=== PATIENT | male | born 1955 | race Caucasian/White ===

== ENCOUNTER 2017-06-16 09:20 | Emergency (ER) | payer BC ==
[2017-06-16 09:26] VITALS: BMI 31.4
[2017-06-16 09:28] VITALS: TEMP 98.1; O2SAT 96
[2017-06-16 11:04] LABS: BASO % 0.5 % (0.0-2.0); EOS % 0.4 % (0.0-4.0); HEMOGLOBIN 14.5 g/dL (12.0-18.0); LYMPH # 1.9 K/uL (1.0-4.3); MEAN CELL VOLUME 86.6 fl (80.0-94.0); MEAN CORPUSCULAR HEMOGLOBIN 29.3 pg (27.0-31.0); MEAN CORPUSCULAR HGB CONC 33.9 g/dL (33.0-37.0); MEAN PLATELET VOLUME 8.4 fl (7.2-11.7); MONO # 0.2 K/uL (0.0-0.8); MONO % 2.6 % (0.0-10.0); NEUT # 6.7 K/uL (1.8-7.0); NEUT % 75.5 % (50.0-75.0); NRBC % 0.1 % (0.0-0.0); RBC 4.93 Mil/uL (4.40-5.90); RED CELL DISTRIBUTION WIDTH 13.4 % (11.5-14.5); WHITE BLOOD COUNT 8.9 K/uL (4.8-10.8)
[2017-06-16 11:17] LABS: ALB/GLOB RATIO 1.2 (1.0-2.1); ALBUMIN 4.2 g/dL (3.5-5.0); ALT/SGPT 38 U/L (21-72); AST/SGOT 20 U/L (17-59); BLOOD UREA NITROGEN 12 mg/dl (9-20); CALCIUM 9.3 mg/dL (8.4-10.2); GFR AFRICAN-AMERICAN > 60; GFR NON-AFRICAN AMERICAN > 60
--- NOTE | 2017-06-16 11:34 | CT ---
PROCEDURE: CT HEAD WITHOUT CONTRAST. HISTORY: SHAY COMPARISON: None available. TECHNIQUE: Axial computed tomography images were obtained through the head/brain without intravenous contrast. Radiation dose: Total exam DLP = 932.4 mGy-cm. This CT exam was performed using one or more of the following dose reduction techniques: Automated exposure control, adjustment of the mA and/or kV according to patient size, and/or use of iterative reconstruction technique. FINDINGS: HEMORRHAGE: No intracranial hemorrhage. BRAIN: No mass effect or edema. No atrophy or chronic microvascular ischemic changes. VENTRICLES: Unremarkable. No hydrocephalus. CALVARIUM: Unremarkable. PARANASAL SINUSES: Unremarkable as visualized. No significant inflammatory changes. MASTOID AIR CELLS: Unremarkable as visualized. No inflammatory changes. OTHER FINDINGS: None. IMPRESSION: No acute intracranial pathology.
--- NOTE | 2017-06-16 11:37 | ED PDOC ---
HPI: Hypertension/Hypotension Time Seen by Provider: 06/16/17 09:46 Chief Complaint (Nursing): High Blood Pressure Chief Complaint (Provider): Elevated BP History Per: Patient History/Exam Limitations: no limitations Additional Complaint(s): Pt states he took his BP yesterday and found to be 170/110, took it today again and still elevated. States compliance with ? HTN med. Pt c/o generalized SHAY that started yesterday. Denies visual changes, neck stiffnes, paresthesias, weakness. Denies CP, SOB, nausea, vomiting. Past Medical History Reviewed: Nursing Documentation, Vital Signs Vital Signs: Last Vital Signs Temp 98.1 F 06/16/17 09:26 Pulse 61 06/16/17 11:27 Resp 18 06/16/17 10:47 BP 158/93 H 06/16/17 11:27 Pulse Ox 96 06/16/17 09:26 - Medical History PMH: HTN - Surgical History Surgical History: No Surg Hx - Family History Family History: States: Unknown Family Hx - Social History Current smoker - smoking cessation education provided: No Alcohol: None - Home Medications Home Medications: Ambulatory Orders Medication Instructions Recorded amLODIPine [Norvasc] 5 mg PO DAILY #14 tab 06/16/17 - Allergies Allergies/Adverse Reactions: Allergies Allergy/AdvReac Type Severity Reaction Status Date / Time No Known Allergies Allergy Verified 06/16/17 09:43 Review of Systems Constitutional: Negative for: Fever, Chills Eyes: Negative for: Vision Change Cardiovascular: Negative for: Chest Pain, Palpitations Respiratory: Negative for: Cough, Shortness of Breath Gastrointestinal: Negative for: Nausea, Vomiting, Abdominal Pain, Diarrhea Genitourinary Male: Negative for: Dysuria, Hematuria Musculoskeletal: Negative for: Back Pain Skin: Negative for: Rash, Lesions Neurological: Positive for: Headache. Negative for: Weakness, Numbness, Incoordination, Change in Speech, Confusion, Seizures, Altered Mental Status, Dizziness Physical Exam - Reviewed Nursing Documentation Reviewed: Yes Vital Signs Reviewed: Yes - Physical Exam Appears: Positive for: Well, No Acute Distress Head Exam: Positive for: ATRAUMATIC, NORMAL INSPECTION Skin: Positive for: Normal Color, Warm, Dry Eye Exam: Positive for: Normal appearance, EOMI, PERRL Neck: Positive for: Normal, Painless ROM, Supple Cardiovascular/Chest: Positive for: Regular Rate, Rhythm Respiratory: Positive for: Normal Breath Sounds. 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 Negative for: Motor/Sensory Deficits, Cerebellar Tests, Aphasia, Facial Droop - Laboratory Results Result Diagrams: 06/16/17 10:40 06/16/17 10:40 - ECG O2 Sat by Pulse Oximetry: 96 Medical Decision Making Medical Decision Makin yo male with elevated BP and headache. - labs - EKG - CT head - [facility] Accession No. : [id number] Patient Name / ID : GANESH LEBRON / [id number] Exam Date : 06/16/2017 11:02:51 ( Approved ) Study Comment : Sex / Age : M / 61Y Creator : Dev Acevedo MD Dictator : Dev Acevedo MD Turret Lathe Tender : Plum Packer : Dev Acevedo MD Approver2 : Report Date : 06/16/2017 11:32:59 My Comment : PROCEDURE: CT HEAD WITHOUT CONTRAST. HISTORY: SHAY COMPARISON: None available. TECHNIQUE: Axial computed tomography images were obtained through the head/brain without intravenous contrast. Radiation dose: Total exam DLP = 932.4 mGy-cm. This CT exam was performed using one or more of the following dose reduction techniques: Automated exposure control, adjustment of the mA and/or kV according to patient size, and/or use of iterative reconstruction technique. FINDINGS: HEMORRHAGE: No intracranial hemorrhage. BRAIN: No mass effect or edema. No atrophy or chronic microvascular ischemic changes. VENTRICLES: Unremarkable. No hydrocephalus. CALVARIUM: Unremarkable. PARANASAL SINUSES: Unremarkable as visualized. No significant inflammatory changes. MASTOID AIR CELLS: Unremarkable as visualized. No inflammatory changes. OTHER FINDINGS: None. IMPRESSION: No acute intracranial pathology. Disposition - Clinical Impression Clinical Impression: Hypertension, Headache - Disposition Referrals: [facility] [place] [Outside] [facility] [place] [Outside] Disposition: Routine/Home Disposition Time: 12:47 Condition: STABLE Prescriptions: amLODIPine [Norvasc] 5 mg PO DAILY #14 tab Instructions: High Blood Pressure in Adults, Headache, Adult (DC) Forms: [email or web address] (Ivorian)
[2017-06-16 11:41] LABS: SQUAMOUS EPITHIAL < 1 /hpf (0-5); URINE BILIRUBIN NEGATIVE (NEGATIVE); URINE BLOOD NEGATIVE (NEGATIVE); URINE CLARITY CLEAR (Clear); URINE COLOR STRAW (YELLOW); URINE GLUCOSE (UA) NEG (Normal); URINE LEUKOCYTE ESTERASE NEG Leu/uL (Negative); URINE PROTEIN NEGATIVE (NEGATIVE); URINE UROBILINOGEN 0.2-1.0 mg/dL (0.2-1.0)
[2017-06-16 12:20] VITALS: BP 147/92; PULSE 57; RESP 16
--- NOTE | 2017-06-17 10:45 | CARD ---
APPROVED REPORT EKG Measurement Heart [id number] MI [id number] <Conclusion> Normal sinus rhythm Left axis deviation Pulmonary disease pattern Septal infarct, age undetermined Abnormal ECG
== END 2017-06-16 13:20 | disposition home or self-care (01) ==
LOC: H.ER 09:20
DX: I10 Essential (primary) hypertension (principal); R51 Headache

== ENCOUNTER 2017-08-26 10:45 | Observation (INO) | payer BC ==
[2017-08-26 10:53] VITALS: BMI 30.4
[2017-08-26] MEDS ORDERED: Sodium Chloride 0.9% 1,000 ML IV STA (11:40)
[2017-08-26 12:27] LABS: SQUAMOUS EPITHIAL < 1 /hpf (0-5); URINE BACTERIA RARE (<OCC); URINE BILIRUBIN NEGATIVE (NEGATIVE); URINE BLOOD SMALL (NEGATIVE); URINE CLARITY SLIGHTY-CLOUDY (Clear); URINE COLOR STRAW (YELLOW); URINE GLUCOSE (UA) >=500 mg/dL (Normal); URINE LEUKOCYTE ESTERASE MOD Leu/uL (Negative); URINE PROTEIN NEGATIVE (NEGATIVE); URINE UROBILINOGEN 0.2-1.0 mg/dL (0.2-1.0)
[2017-08-26 12:28] LABS: BASO % 0.2 % (0.0-2.0); HEMOGLOBIN 15.1 g/dL (12.0-18.0); LYMPH # 1.8 K/uL (1.0-4.3); LYMPH % 10.2 % (20.0-40.0); MEAN CELL VOLUME 86.9 fl (80.0-94.0); MEAN CORPUSCULAR HEMOGLOBIN 29.6 pg (27.0-31.0); MEAN CORPUSCULAR HGB CONC 34.1 g/dL (33.0-37.0); MEAN PLATELET VOLUME 8.5 fl (7.2-11.7); MONO # 0.6 K/uL (0.0-0.8); MONO % 3.5 % (0.0-10.0); NEUT # 15.3 K/uL (1.8-7.0); NEUT % 86.1 % (50.0-75.0); RBC 5.1 Mil/uL (4.40-5.90); RED CELL DISTRIBUTION WIDTH 13.5 % (11.5-14.5); WHITE BLOOD COUNT 17.7 K/uL (4.8-10.8)
[2017-08-26 12:47] LABS: ALB/GLOB RATIO 1.1 (1.0-2.1); ALBUMIN 4.8 g/dL (3.5-5.0); ALT/SGPT 27 U/L (21-72); AST/SGOT 30 U/L (17-59); BLOOD UREA NITROGEN 22 mg/dl (9-20); CALCIUM 9.5 mg/dL (8.4-10.2); GFR AFRICAN-AMERICAN > 60; GFR NON-AFRICAN AMERICAN 51; LIPASE 65 U/L (23-300)
[2017-08-26] MEDS ORDERED: Iohexol 300 100 ML IJ ONE (13:30)
[2017-08-26] MEDS ORDERED: Sodium Chloride 0.9% 50 ML IV ONE (13:30)
--- NOTE | 2017-08-26 13:43 | ED PDOC ---
HPI: Abdomen Time Seen by Provider: 08/26/17 11:03 Chief Complaint (Nursing): Abdominal Pain Chief Complaint (Provider): abdominal pain History Per: Patient History/Exam Limitations: no limitations Onset/Duration Of Symptoms: Days (2), Gradual Severity: Moderate Location Of Pain/Discomfort: LLQ Quality Of Discomfort: Sharp Associated Symptoms: Loss Of Appetite, Back Pain. denies: Nausea, Vomiting, Diarrhea Exacerbating Factors: None Alleviating Factors: None Last Bowel Movement: Today Additional Complaint(s): 61yo male c/o LLQ abdominal pain x2-3 days associated with generalized weakness and fatigue. Denies melena, BRBPR, diarrhea, vomiting or cough. Notes chills but denies fever. Denies prior history of similar symptoms. Past Medical History Reviewed: Historical Data, Nursing Documentation, Vital Signs Vital Signs: Last Vital Signs Temp 98.4 F 08/26/17 10:53 Pulse 92 H 08/26/17 10:53 Resp 16 08/26/17 10:53 BP 174/98 H 08/26/17 10:53 Pulse Ox 98 08/26/17 10:53 - Medical History PMH: Diabetes, HTN - Family History Family History: States: Unknown Family Hx - Social History Current smoker - smoking cessation education provided: No Drugs: Denies - Home Medications Home Medications: Ambulatory Orders Medication Instructions Recorded amLODIPine [Norvasc] 5 mg PO DAILY #14 tab 06/16/17 - Allergies Allergies/Adverse Reactions: Allergies Allergy/AdvReac Type Severity Reaction Status Date / Time No Known Allergies Allergy Verified 06/16/17 09:43 Review of Systems Constitutional: Positive for: Chills, Weakness. Negative for: Fever ENT: Negative for: Throat Pain Cardiovascular: Negative for: Chest Pain, Palpitations Respiratory: Negative for: Cough, Shortness of Breath Gastrointestinal: Positive for: Abdominal Pain. Negative for: Nausea, Vomiting , Diarrhea Genitourinary Male: Negative for: Dysuria Musculoskeletal: Negative for: Neck Pain, Back Pain Skin: Negative for: Rash, Lesions, Jaundice Neurological: Negative for: Weakness, Numbness Psych: Negative for: Anxiety Physical Exam - Reviewed Nursing Documentation Reviewed: Yes Vital Signs Reviewed: Yes - Physical Exam Appears: Positive for: Well, Non-toxic, No Acute Distress Head Exam: Positive for: ATRAUMATIC, NORMAL INSPECTION, NORMOCEPHALIC Skin: Positive for: Normal Color, Warm, DRY Eye Exam: Positive for: EOMI, Normal appearance, PERRL ENT: Positive for: Normal ENT Inspection Neck: Positive for: Normal, Painless ROM Cardiovascular/Chest: Positive for: Regular Rate, Rhythm Respiratory: Positive for: CNT, Normal Breath Sounds Pulses-Radial (L): 3+/4+ Pulses-Radial (R): 3+/4+ Gastrointestinal/Abdominal: Positive for: Soft, Tenderness (mild LLQ tenderness) . Negative for: Guarding Back: Positive for: Normal Inspection Extremity: Positive for: Normal ROM Neurologic/Psych: Positive for: Alert, Oriented. Negative for: Motor/Sensory Deficits - Laboratory Results Result Diagrams: 08/26/17 12:19 08/26/17 12:19 - ECG O2 Sat by Pulse Oximetry: 98 Medical Decision Making Medical Decision Making: Workup for abd pain and generalized weakness r/o diverticulitits, pyelonephritis , colitis, obstruction, mass, or other. Labs reviewed revealing elevated WBC 17 w left shift Mild elev BUN w WBC and leuk est in UA Disposition - Disposition
--- NOTE | 2017-08-26 14:27 | CT ---
PROCEDURE: CT Abdomen and Pelvis with contrast HISTORY: LLQ pain weakness x2days COMPARISON: None. TECHNIQUE: Following the intravenous administration of iodinated contrast material, a CT examination of the abdomen and pelvis performed from the domes of the diaphragms to the symphysis pubis with reformatted datasets provided not only axial but also sagittal and coronal planes. Oral contrast was not administered as per referring physician request. Contrast dose: Omnipaque 300, 100 cc Radiation dose: Total exam DLP = 885.93 mGy-cm. This CT exam was performed using one or more of the following dose reduction techniques: Automated exposure control, adjustment of the mA and/or kV according to patient size, and/or use of iterative reconstruction technique. FINDINGS: LOWER THORAX: Mild cardiomegaly and bilateral basilar dependent atelectasis. LIVER: Unremarkable. No gross lesion or ductal dilatation. GALLBLADDER AND BILE DUCTS: Unremarkable. PANCREAS: Unremarkable. No gross lesion or ductal dilatation. SPLEEN: Unremarkable. ADRENALS: Unremarkable. No mass. KIDNEYS AND URETERS: There is a 7.0 x 6.3 x 8.5 mm calculus with irregular peripheral margins lodged at distal segment of the proximal left ureter (upper L3 endplate level) causing moderate left hydroureteronephrosis with prominent left perinephric reaction extending toward the left pericolic gutter. No fluid collection identified. The ureter distal to the calculus is normal in caliber with the urinary bladder decompressed but questionably thick-walled. No additional radiodense urolithiasis bilaterally. No right-sided obstructive uropathy although mildly prominent extrarenal pelvis is noted at the right kidney. VASCULATURE: Unremarkable. No aortic aneurysm. BOWEL: The stomach is collapsed. No obstruction. No gross mural thickening. Moderate fecal loading is seen throughout the colon. APPENDIX: Normal appendix. PERITONEUM: Shotty central mesenteric lymph nodes are identified associated with ground-glass opacity in the central fat suspicious for mesenteric adenitis. LYMPH NODES: No grossly enlarged lymphadenopathy. BLADDER: See kidneys in ureter section above peer REPRODUCTIVE: Mild prostate gland enlargement identified. BONES: No acute fracture. OTHER FINDINGS: None. IMPRESSION: 1. 7.0 x 6.3 x 8.5 mm irregular calculus obstructs the proximal right ureter causing moderate left-sided obstructive uropathy. No additional radiodense urolithiasis. No right-sided obstructive uropathy identified. Urinary bladder is partially decompressed with limited evaluation of the thick appearing wall but no pericystic reaction. 2. Potential mesenteric adenitis as discussed above. Remainder the examination is nonacute.
[2017-08-26 14:42] LABS: VENOUS BLOOD GAS BASE EXCESS -0.6 mmol/L (0.0-2.0); VENOUS BLOOD GAS PCO2 46 mmHg (40-60); VENOUS BLOOD GAS PO2 25 mm/Hg (30-55); VENOUS BLOOD PH 7.35 (7.32-7.43)
--- NOTE | 2017-08-26 16:09 | CP.PCM.HP ---
History of Present Illness - History of Present Illness History of Present Illness: CC: L flank pain HPI: 61 YO Male with HTN, Prediabetes, CVA x 3 (last one 2008) presents to [facility] ED with L flank pain. Pt states that the pain started yesterday, sharp in nature without radiation and has worsened overnight. Pt states that pain is accompanied by generalized weakness, and chills overnight. No hx of similar episodes in the past. Denies chest pain, dyspnea, nausea, vomiting, fever, dysuria, urinary frequency or hematuria. MD: MONSERRAT PMH: HTN, prediabetes, CVA x 3 SUrgHx: cerebral stent 2008 SH: social ETOH, denies currently smoking (1 yr smoking socially) and illicit drug use Allergies: NKDA Meds: Amlodipine 5mg, Cozaar 100mg, Metformin 500mg, Asa 81mg Code: Full code ED course: Vitals: BP 174/98, HR 92, T 98.4, RR 16, O2 98 RA Labs: 17.7>15.1/44.3<213 140/4.0, 101/26, 22/1.4 <137 Trops x 1 neg UA-- +RBC 7 and WBC 34, Mod Leukes Meds: toradol 15mg, Rocephin, 1L IVF Present on Admission - Present on Admission Any Indicators Present on Admission: No Review of Systems - Constitutional Constitutional: Chills, Weakness (generalized ). absent: Headache - Cardiovascular Cardiovascular: absent: Chest Pain, Dyspnea - Respiratory Respiratory: absent: Dyspnea - Gastrointestinal Gastrointestinal: Other (L flank pain ). absent: Change in Stool Character, Diarrhea - Genitourinary Genitourinary: absent: Difficulty Urinating, Dysuria, Hematuria, Pyuria Past Patient History - Infectious Disease Hx of Infectious Diseases: None - Past Social History Smoking Status: Former Smoker Alcohol: Social Drugs: Denies - CARDIAC Hx Hypertension: Yes - NEUROLOGICAL Other/Comment: 3 strokes 9 yrs ago - PSYCHIATRIC Hx Substance Use: No - SURGICAL HISTORY Hx Surgeries: Yes Other/Comment: stent placement to head and rt groin 9 yrs ago - ANESTHESIA Hx Anesthesia: Yes Hx Anesthesia Reactions: No Meds Allergies/Adverse Reactions: Allergies Allergy/AdvReac Type Severity Reaction Status Date / Time No Known Allergies Allergy Verified 06/16/17 09:43 Physical Exam - Constitutional Appears: No Acute Distress - Head Exam Head Exam: NORMAL INSPECTION - Eye Exam Eye Exam: EOMI, Normal appearance - ENT Exam ENT Exam: Mucous Membranes Moist - Respiratory Exam Respiratory Exam: Clear to Auscultation Bilateral, NORMAL BREATHING PATTERN. absent: Rhonchi, Wheezes - Cardiovascular Exam Cardiovascular Exam: REGULAR RHYTHM, +S1, +S2 - GI/Abdominal Exam GI & Abdominal Exam: Normal Bowel Sounds, Soft. absent: Distended, Guarding, Tenderness - Back Exam Back exam: NORMAL INSPECTION. absent: CVA tenderness (L), CVA tenderness (R) - Neurological Exam Neurological exam: Alert, Oriented x3 - Psychiatric Exam Psychiatric exam: Normal Affect, Normal Mood - Skin Skin Exam: Dry, Intact, Pallor Results - Vital Signs Recent Vital Signs: Last Vital Signs Temp 98.4 F 08/26/17 10:53 Pulse 92 H 08/26/17 10:53 Resp 16 08/26/17 10:53 BP 174/98 H 08/26/17 10:53 Pulse Ox 98 08/26/17 15:05 - Labs Result Diagrams: 08/26/17 12:19 08/26/17 12:19 Labs: Laboratory Results - last 24 hr 08/26/17 08/26/17 08/26/17 11:47 12:10 12:19 WBC 17.7 H D RBC 5.10 Hgb 15.1 Hct 44.3 MCV 86.9 MCH 29.6 MCHC 34.1 RDW 13.5 Plt Count 213 MPV 8.5 Neut % (Auto) 86.1 H Lymph % (Auto) 10.2 L [place] % (Auto) 3.5 Eos % (Auto) 0.0 Baso % (Auto) 0.2 Neut # (Auto) 15.3 H Lymph # (Auto) 1.8 [place] # (Auto) 0.6 Eos # (Auto) 0.0 Baso # (Auto) 0.0 pO2 VBG pH VBG pCO2 VBG HCO3 VBG Total CO2 VBG O2 Sat (Calc) VBG Base Excess VBG Potassium Glucose Lactate FiO2 Sodium Potassium Chloride Carbon Dioxide Anion Gap BUN Creatinine Est GFR ( Amer) Est GFR (Non-Af Amer) POC Glucose (mg/dL) 129 H Random Glucose Calcium Total Bilirubin AST ALT Alkaline Phosphatase Total Creatine Kinase Troponin I Total Protein Albumin Globulin Albumin/Globulin Ratio Lipase Venous Blood Potassium Urine Color Straw Urine Clarity Slighty-cloudy Urine pH 6.0 Ur Specific [place] 1.027 Urine Protein Negative Urine Glucose (UA) >=500 Urine Ketones Negative Urine Blood Small Urine Nitrate Negative Urine Bilirubin Negative Urine Urobilinogen 0.2-1.0 Ur Leukocyte Esterase Mod Urine RBC (Auto) 7 H Urine Microscopic WBC 34 H Ur Squamous Epith Cells < 1 Urine Bacteria Rare 08/26/17 08/26/17 12:19 14:37 WBC RBC Hgb Hct MCV MCH MCHC RDW Plt Count MPV Neut % (Auto) Lymph % (Auto) [place] % (Auto) Eos % (Auto) Baso % (Auto) Neut # (Auto) Lymph # (Auto) [place] # (Auto) Eos # (Auto) Baso # (Auto) pO2 25 L VBG pH 7.35 VBG pCO2 46 VBG HCO3 22.9 VBG Total CO2 26.8 VBG O2 Sat (Calc) 50.1 VBG Base Excess -0.6 L VBG Potassium 3.9 Glucose 130 H Lactate 1.0 FiO2 21.0 Sodium 140 136.0 Potassium 4.0 Chloride 101 105.0 Carbon Dioxide 26 Anion Gap 17 BUN 22 H Creatinine 1.4 Est GFR ( Amer) > 60 Est GFR (Non-Af Amer) 51 POC Glucose (mg/dL) Random Glucose 137 H Calcium 9.5 Total Bilirubin 1.0 AST 30 ALT 27 Alkaline Phosphatase 71 Total Creatine Kinase 38 L Troponin I < 0.0120 Total Protein 9.0 H Albumin 4.8 Globulin 4.2 H Albumin/Globulin Ratio 1.1 Lipase 65 Venous Blood Potassium 3.9 Urine Color Urine Clarity Urine pH Ur Specific [place] Urine Protein Urine Glucose (UA) Urine Ketones Urine Blood Urine Nitrate Urine Bilirubin Urine Urobilinogen Ur Leukocyte Esterase Urine RBC (Auto) Urine Microscopic WBC Ur Squamous Epith Cells Urine Bacteria Assessment & Plan - Assessment and Plan (Free Text) Assessment: Assessment/Plan: 61 YO Male with PMHx of HTN, Prediabetes and CVAx 3 is admitted for sepsis and obstructive uropathy. Sepsis -elevated HR, with WBC of 17.7, with obstructive uropathy, + UA -s/p 1L IVF, 1g Rocepin in ED -start IVF @ 30mg/kg Bolus, followed by 200ml/hr -administer additional 1g rocepin -monitor vitals Obstructive Uropathy -CT sig for 7*6.3*8.5, irregular calculus proximal left ureter, moderate left obstructive uropathy -UA; +RBC, WBC and mod leukes -s/p 1g rocephin -IVF and additional abx -urology on board; OR for stone removal today -NPO HTN -c/w home meds, Norvasc, Cozaar -cont to monitor CVA x 3 -c/w ASA -will benefit from statin therapy as out patient -ASCVD score 31.6; will benefit from high intensity statin Prediabetes -HbA1c 6.2 -c/w Metformin 500mg Dvt prox -Lovenox sc
[2017-08-26] MEDS ORDERED: cefTRIAXone (Rocephin) 1 gm Inj ONE ×2 (16:29→17:40)
[2017-08-26] MEDS: Sodium Chloride 0.9% 1,000 ML IV SCH ×4 (16:33→23:25)
--- NOTE | 2017-08-26 19:10 | RAD ---
HISTORY: pre-op COMPARISON: No prior. TECHNIQUE: Chest PA and lateral FINDINGS: LUNGS: No active pulmonary disease. PLEURA: No significant pleural effusion identified. No pneumothorax apparent. CARDIOVASCULAR: Normal. OSSEOUS STRUCTURES: No significant abnormalities. VISUALIZED UPPER ABDOMEN: Normal. OTHER FINDINGS: None. IMPRESSION: No acute cardiopulmonary disease appreciated.
[2017-08-26] MEDS ORDERED: Sodium Chloride 0.9% 1,000 ML IV ONE (19:50)
[2017-08-26] MEDS ORDERED: Succinylcholine 200 mg/10 ml Inj IV ONE (19:50)
[2017-08-26] MEDS ORDERED: Midazolam 2 MG/2 ML VIAL ONE (19:50)
[2017-08-26] MEDS ORDERED: Propofol 10 mg/ml Inj (20 ML) ONE (19:50)
[2017-08-26] MEDS ORDERED: Sevoflurane - Inhalation Anesthetic Liq (250 ml) ONE (19:50)
--- NOTE | 2017-08-26 22:32 | CP.PCM.PCO ---
Addendum Addendum: 08/26/17 22:30 Patient seen and examined at bedside s/p cystoscopy w/ stent placement in left ureter. Patient tolerated the procedure well w/o complication and is recovering appropriately. The patient has aready voided freely w/o pain. The patient is tolerating pO w/o any nausea, vomiting, or diarrhea. The patient denies headaches, chest pain, SOB, abdominal pain, dysuria, or fever.
[2017-08-27] MEDS: Sodium Chloride 0.9% 1,000 ML IV SCH ×2 (02:15→04:34)
--- NOTE | 2017-08-27 07:42 | CP.PCM.PN ---
Subjective - Date & Time of Evaluation Date of Evaluation: 08/27/17 Time of Evaluation: 07:42 Objective - Vital Signs/Intake and Output Vital Signs (last 24 hours): Temp Pulse Resp BP Pulse Ox 97.7 F 76 20 125/74 95 08/27/17 00:20 08/27/17 00:20 08/27/17 00:20 08/27/17 00:20 08/27/17 00:20 Intake and Output: 08/27/17 08/27/17 06:59 18:59 Intake Total 600 Balance 600 - Medications Medications: Current Medications Amlodipine Besylate (Norvasc) 5 mg PO DAILY [facility] Aspirin (Ecotrin) 81 mg PO DAILY [facility] Enoxaparin Sodium (Lovenox) 40 mg SC DAILY [facility] PRN Reason: Protocol Sodium Chloride (Sodium Chloride 0.9%) 1,000 mls @ 200 mls/hr IV .Q5H [facility] Last Admin: 08/27/17 04:34 Dose: 200 mls/hr Ketorolac Tromethamine (Toradol) 15 mg IVP Q6 [facility] Last Admin: 08/27/17 04:30 Dose: 15 mg Losartan Potassium (Cozaar) 100 mg PO DAILY [facility] Metformin HCl (Glucophage) 500 mg PO BID [facility] Last Admin: 08/26/17 17:36 Dose: Not Given - Labs Labs: 08/26/17 12:19 08/26/17 12:19
--- NOTE | 2017-08-27 08:20 | CP.PCM.DIS ---
Provider - Provider Date of Admission: 08/26/17 22:18 Attending physician: Mellisa Vela MD Time Spent in preparation of Discharge (in minutes): 30 Hospital Course - Lab Results Lab Results: Most Recent Lab Values WBC 17.7 K/uL (4.8-10.8) H D 08/26/17 12:19 RBC 5.10 Mil/uL (4.40-5.90) 08/26/17 12:19 Hgb 15.1 g/dL (12.0-18.0) 08/26/17 12:19 Hct 44.3 % (35.0-51.0) 08/26/17 12:19 MCV 86.9 fl (80.0-94.0) 08/26/17 12:19 MCH 29.6 pg (27.0-31.0) 08/26/17 12:19 MCHC 34.1 g/dL (33.0-37.0) 08/26/17 12:19 RDW 13.5 % (11.5-14.5) 08/26/17 12:19 Plt Count 213 K/uL (130-400) 08/26/17 12:19 MPV 8.5 fl (7.2-11.7) 08/26/17 12:19 Neut % (Auto) 86.1 % (50.0-75.0) H 08/26/17 12:19 Lymph % (Auto) 10.2 % (20.0-40.0) L 08/26/17 12:19 Saline % (Auto) 3.5 % (0.0-10.0) 08/26/17 12:19 Eos % (Auto) 0.0 % (0.0-4.0) 08/26/17 12:19 Baso % (Auto) 0.2 % (0.0-2.0) 08/26/17 12:19 Neut # (Auto) 15.3 K/uL (1.8-7.0) H 08/26/17 12:19 Lymph # (Auto) 1.8 K/uL (1.0-4.3) 08/26/17 12:19 Saline # (Auto) 0.6 K/uL (0.0-0.8) 08/26/17 12:19 Eos # (Auto) 0.0 K/uL (0.0-0.7) 08/26/17 12:19 Baso # (Auto) 0.0 K/uL (0.0-0.2) 08/26/17 12:19 pO2 25 mm/Hg (30-55) L 08/26/17 14:37 VBG pH 7.35 (7.32-7.43) 08/26/17 14:37 VBG pCO2 46 mmHg (40-60) 08/26/17 14:37 VBG HCO3 22.9 mmol/L 08/26/17 14:37 VBG Total CO2 26.8 mmol/L (22-28) 08/26/17 14:37 VBG O2 Sat (Calc) 50.1 % (40-65) 08/26/17 14:37 VBG Base Excess -0.6 mmol/L (0.0-2.0) L 08/26/17 14:37 VBG Potassium 3.9 mmol/L (3.6-5.2) 08/26/17 14:37 Sodium 136.0 mmol/L (132-148) 08/26/17 14:37 Chloride 105.0 mmol/L (98-107) 08/26/17 14:37 Glucose 130 mg/dL (75-110) H 08/26/17 14:37 Lactate 1.0 mmol/L (0.7-2.1) 08/26/17 14:37 FiO2 21.0 % 08/26/17 14:37 Sodium 140 mmol/l (132-148) 08/26/17 12:19 Potassium 4.0 MMOL/L (3.6-5.0) 08/26/17 12:19 Chloride 101 mmol/L (98-107) 08/26/17 12:19 Carbon Dioxide 26 mmol/L (22-30) 08/26/17 12:19 Anion Gap 17 (10-20) 08/26/17 12:19 BUN 22 mg/dl (9-20) H 08/26/17 12:19 Creatinine 1.4 mg/dl (0.8-1.5) 08/26/17 12:19 Est GFR ( Amer) > 60 08/26/17 12:19 Est GFR (Non-Af Amer) 51 06/21/18 12:19 POC Glucose (mg/dL) 129 mg/dL (65-110) H 08/26/17 11:47 Random Glucose 137 mg/dL (75-110) H 08/26/17 12:19 Calcium 9.5 mg/dL (8.4-10.2) 08/26/17 12:19 Total Bilirubin 1.0 mg/dl (0.2-1.3) 08/26/17 12:19 AST 30 U/L (17-59) 08/26/17 12:19 ALT 27 U/L (21-72) 08/26/17 12:19 Alkaline Phosphatase 71 U/L (38-126) 08/26/17 12:19 Total Creatine Kinase 38 U/L (55-170) L 08/26/17 12:19 Troponin I < 0.0120 ng/mL (0.00-0.120) 08/26/17 12:19 Total Protein 9.0 G/DL (6.3-8.2) H 08/26/17 12:19 Albumin 4.8 g/dL (3.5-5.0) 08/26/17 12:19 Globulin 4.2 gm/dL (2.2-3.9) H 08/26/17 12:19 Albumin/Globulin Ratio 1.1 (1.0-2.1) 08/26/17 12:19 Lipase 65 U/L (23-300) 08/26/17 12:19 Venous Blood Potassium 3.9 mmol/L (3.6-5.2) 08/26/17 14:37 Urine Color Straw (YELLOW) 08/26/17 12:10 Urine Clarity Slighty-cloudy (Clear) 08/26/17 12:10 Urine pH 6.0 (5.0-8.0) 08/26/17 12:10 Ur Specific [place] 1.027 (1.003-1.030) 08/26/17 12:10 Urine Protein Negative mg/dL (NEGATIVE) 08/26/17 12:10 Urine Glucose (UA) >=500 mg/dL (Normal) 08/26/17 12:10 Urine Ketones Negative mg/dL (NEGATIVE) 08/26/17 12:10 Urine Blood Small (NEGATIVE) 08/26/17 12:10 Urine Nitrate Negative (NEGATIVE) 08/26/17 12:10 Urine Bilirubin Negative (NEGATIVE) 08/26/17 12:10 Urine Urobilinogen 0.2-1.0 mg/dL (0.2-1.0) 08/26/17 12:10 Ur Leukocyte Esterase Mod Elis/uL (Negative) 08/26/17 12:10 Urine RBC (Auto) 7 /hpf (0-3) H 08/26/17 12:10 Urine Microscopic WBC 34 /hpf (0-5) H 08/26/17 12:10 Ur Squamous Epith Cells < 1 /hpf (0-5) 08/26/17 12:10 Urine Bacteria Rare (<OCC) 08/26/17 12:10 Blood Type O POSITIVE 08/26/17 18:55 Antibody Screen Negative 08/26/17 18:55 BBK History Checked No verified bt 08/26/17 18:55 Discharge Exam - Head Exam Head Exam: NORMAL INSPECTION Discharge Plan - Follow Up Plan Condition: GOOD Disposition: HOME/ ROUTINE
--- NOTE | 2017-08-27 08:23 | CARD ---
APPROVED REPORT EKG Measurement Heart [id number] OK [id number] [id number] <Conclusion> Sinus bradycardia Otherwise normal ECG
[2017-08-27 08:28] VITALS: BP 154/83; PULSE 65; RESP 18; TEMP 98; O2SAT 96
[2017-08-27] MEDS ORDERED: Enoxaparin 40 mg Syringe SC SCH (09:00)
[2017-08-27 09:22] LABS: BASO % 0.4 % (0.0-2.0); EOS # 0.1 K/uL (0.0-0.7); HEMOGLOBIN 13.4 g/dL (12.0-18.0); LYMPH % 18.3 % (20.0-40.0); MEAN CELL VOLUME 87.3 fl (80.0-94.0); MEAN CORPUSCULAR HGB CONC 34.3 g/dL (33.0-37.0); MONO # 0.4 K/uL (0.0-0.8); MONO % 3.3 % (0.0-10.0); NEUT # 8.5 K/uL (1.8-7.0); NRBC % 0.2 % (0.0-0.0); RBC 4.46 Mil/uL (4.40-5.90); RED CELL DISTRIBUTION WIDTH 13.4 % (11.5-14.5)
[2017-08-27 09:38] LABS: BLOOD UREA NITROGEN 13 mg/dl (9-20); CALCIUM 8.5 mg/dL (8.4-10.2); GFR AFRICAN-AMERICAN > 60; GFR NON-AFRICAN AMERICAN > 60
--- NOTE | 2017-08-27 12:13 | RAD ---
HISTORY: s/p cysto left ureteral stent insertion COMPARISON: No prior. FINDINGS: BOWEL: Normal. No obstruction. No free air. BONES: Normal. OTHER FINDINGS: Left double-J ureteral stent with abnormal configuration of proximal pigtail. IMPRESSION: Left double-J ureteral stent with abnormal configuration of proximal pigtail.
--- NOTE | 2017-08-27 12:44 | PQF ---
CDI RESPONSE TEXT: Diagnosis of sepsis, tx with IVF, abx and underwent surgery to clear the source (infected stone). Sep sis resolved. CDI QUERY TEXT: Rule Out Condition Clarification 1) Please clarify if Sepsis is ruled in or ruled out. 2) If Sepsis is ruled in please document the suspected infection site causing the sepsis. Please clarify status of this condition: -Patient has condition -Condition was ruled out Please provide corresponding diagnosis for patient's clinical picture and associated treatment -Patient had condition which is now resolved -Other (please specify) -Clinically unable to determine -Unknown The patient's Clinical Indicators include: Admitted for left flank pain, weakness and chills. Documentation of obstructive uropathy and sepsis ( elevated HR, WBC of 17.7) S/p Cystoscopy with stent placement. Treated with Rocephin. Blood and Uri ne CS pending results. Physician Orders; 08/26/17 @ 1508 hours: OBVA status: Obstructive uropathy with Sepsis Physician Orders: 08/26/17 @ 2218: INPATIENT status: Obstructive uropathy . NO mention of sepsis. Query created by: Ting Hyde on 08/27/2017 10:29 AM Electronically signed by: Shanelle Melo 08/27/2017 12:42 PM
--- NOTE | 2017-08-27 12:56 | CP.PCM.DIS ---
Provider - Provider Date of Admission: 08/26/17 22:18 Attending physician: Mellisa Vela MD Consults: Urology: Dr. Grossman Time Spent in preparation of Discharge (in minutes): 20 Hospital Course - Lab Results Lab Results: Micro Results 08/26/17 15:14 Urine Urine Culture - Final No Growth (<1,000 CFU/ML) Most Recent Lab Values WBC 11.0 K/uL (4.8-10.8) H 08/27/17 09:12 RBC 4.46 Mil/uL (4.40-5.90) 08/27/17 09:12 Hgb 13.4 g/dL (12.0-18.0) 08/27/17 09:12 Hct 38.9 % (35.0-51.0) 08/27/17 09:12 MCV 87.3 fl (80.0-94.0) 08/27/17 09:12 MCH 30.0 pg (27.0-31.0) 08/27/17 09:12 MCHC 34.3 g/dL (33.0-37.0) 08/27/17 09:12 RDW 13.4 % (11.5-14.5) 08/27/17 09:12 Plt Count 168 K/uL (130-400) 08/27/17 09:12 MPV 8.0 fl (7.2-11.7) 08/27/17 09:12 Neut % (Auto) 77.0 % (50.0-75.0) H 08/27/17 09:12 Lymph % (Auto) 18.3 % (20.0-40.0) L 08/27/17 09:12 [place] % (Auto) 3.3 % (0.0-10.0) 08/27/17 09:12 Eos % (Auto) 1.0 % (0.0-4.0) 08/27/17 09:12 Baso % (Auto) 0.4 % (0.0-2.0) 08/27/17 09:12 Neut # (Auto) 8.5 K/uL (1.8-7.0) H 08/27/17 09:12 Lymph # (Auto) 2.0 K/uL (1.0-4.3) 08/27/17 09:12 [place] # (Auto) 0.4 K/uL (0.0-0.8) 08/27/17 09:12 Eos # (Auto) 0.1 K/uL (0.0-0.7) 08/27/17 09:12 Baso # (Auto) 0.0 K/uL (0.0-0.2) 08/27/17 09:12 pO2 25 mm/Hg (30-55) L 08/26/17 14:37 VBG pH 7.35 (7.32-7.43) 08/26/17 14:37 VBG pCO2 46 mmHg (40-60) 08/26/17 14:37 VBG HCO3 22.9 mmol/L 08/26/17 14:37 VBG Total CO2 26.8 mmol/L (22-28) 08/26/17 14:37 VBG O2 Sat (Calc) 50.1 % (40-65) 08/26/17 14:37 VBG Base Excess -0.6 mmol/L (0.0-2.0) L 08/26/17 14:37 VBG Potassium 3.9 mmol/L (3.6-5.2) 08/26/17 14:37 Sodium 136.0 mmol/L (132-148) 08/26/17 14:37 Chloride 105.0 mmol/L (98-107) 08/26/17 14:37 Glucose 130 mg/dL (75-110) H 08/26/17 14:37 Lactate 1.0 mmol/L (0.7-2.1) 08/26/17 14:37 FiO2 21.0 % 08/26/17 14:37 Sodium 142 mmol/l (132-148) 08/27/17 09:12 Potassium 3.7 MMOL/L (3.6-5.0) 08/27/17 09:12 Chloride 108 mmol/L (98-107) H 08/27/17 09:12 Carbon Dioxide 26 mmol/L (22-30) 08/27/17 09:12 Anion Gap 12 (10-20) 08/27/17 09:12 BUN 13 mg/dl (9-20) 08/27/17 09:12 Creatinine 0.9 mg/dl (0.8-1.5) 08/27/17 09:12 Est GFR ( Amer) > 60 08/27/17 09:12 Est GFR (Non-Af Amer) > 60 08/27/17 09:12 POC Glucose (mg/dL) 129 mg/dL (65-110) H 08/26/17 11:47 Random Glucose 183 mg/dL (75-110) H 08/27/17 09:12 Calcium 8.5 mg/dL (8.4-10.2) 08/27/17 09:12 Total Bilirubin 1.0 mg/dl (0.2-1.3) 08/26/17 12:19 AST 30 U/L (17-59) 08/26/17 12:19 ALT 27 U/L (21-72) 08/26/17 12:19 Alkaline Phosphatase 71 U/L (38-126) 08/26/17 12:19 Total Creatine Kinase 38 U/L (55-170) L 08/26/17 12:19 Troponin I < 0.0120 ng/mL (0.00-0.120) 08/26/17 12:19 Total Protein 9.0 G/DL (6.3-8.2) H 08/26/17 12:19 Albumin 4.8 g/dL (3.5-5.0) 08/26/17 12:19 Globulin 4.2 gm/dL (2.2-3.9) H 08/26/17 12:19 Albumin/Globulin Ratio 1.1 (1.0-2.1) 08/26/17 12:19 Lipase 65 U/L (23-300) 08/26/17 12:19 Venous Blood Potassium 3.9 mmol/L (3.6-5.2) 08/26/17 14:37 Urine Color Straw (YELLOW) 08/26/17 12:10 Urine Clarity Slighty-cloudy (Clear) 08/26/17 12:10 Urine pH 6.0 (5.0-8.0) 08/26/17 12:10 Ur Specific [place] 1.027 (1.003-1.030) 08/26/17 12:10 Urine Protein Negative mg/dL (NEGATIVE) 08/26/17 12:10 Urine Glucose (UA) >=500 mg/dL (Normal) 08/26/17 12:10 Urine Ketones Negative mg/dL (NEGATIVE) 08/26/17 12:10 Urine Blood Small (NEGATIVE) 08/26/17 12:10 Urine Nitrate Negative (NEGATIVE) 08/26/17 12:10 Urine Bilirubin Negative (NEGATIVE) 08/26/17 12:10 Urine Urobilinogen 0.2-1.0 mg/dL (0.2-1.0) 08/26/17 12:10 Ur Leukocyte Esterase Mod Elis/uL (Negative) 08/26/17 12:10 Urine RBC (Auto) 7 /hpf (0-3) H 08/26/17 12:10 Urine Microscopic WBC 34 /hpf (0-5) H 08/26/17 12:10 Ur Squamous Epith Cells < 1 /hpf (0-5) 08/26/17 12:10 Urine Bacteria Rare (<OCC) 08/26/17 12:10 Blood Type O POSITIVE 08/26/17 18:55 Antibody Screen Negative 08/26/17 18:55 BBK History Checked No verified bt 08/26/17 18:55 - Hospital Course Hospital Course: 61 YO male with PMH of HTN, CVA x 3, prediabetes was admitted for Obstructive Uropathy and sepsis. Pt was found to have an obstructing L renal stone, S/p cystoscopy with L stent placement. Pt treated with IV abx, IVF for sepsis. Pt doing well this AM, L flank pain resolved, good urinary output. Will d/c home with follow up in [facility] on 03/13/17 @ 9:[address] Grossman on 08/30/17 @ 10:00 AM. Per urology, will d/c with Macrobid x 10 days. New Meds: Lipitor 40mg PO daily (high intensity statin recommended; ASCVD >7.5%) Macrobid PO BID x 10 days Cont meds: Amlodipine 5mg Cozaar 100mg Metformin 500mg Asa 81mg Discharge Exam - Head Exam Head Exam: NORMAL INSPECTION - Eye Exam Eye Exam: EOMI - ENT Exam ENT Exam: Mucous Membranes Moist - Respiratory Exam Respiratory Exam: Clear to PA & Lateral, NORMAL BREATHING PATTERN. absent: Wheezes - Cardiovascular Exam Cardiovascular Exam: REGULAR RHYTHM, +S1, +S2 - GI/Abdominal Exam GI & Abdominal Exam: Normal Bowel Sounds, Soft. absent: Distended, Guarding, Tenderness - Extremities Exam Extremities exam: full ROM, normal inspection - Back Exam Back exam: NORMAL INSPECTION. absent: CVA tenderness (L), CVA tenderness (R) - Neurological Exam Neurological exam: Alert, Oriented x3 - Psychiatric Exam Psychiatric exam: Normal Affect, Normal Mood Discharge Plan - Discharge Medications Prescriptions: Acetaminophen [Tylenol 325mg tab] 650 mg PO Q6 #30 tab Atorvastatin [Lipitor] 40 mg PO DAILY #30 tab Nitrofurantoin Macrocrystals [Macrobid] 100 mg PO BID 10 Days #20 cap - Follow Up Plan Condition: STABLE Disposition: HOME/ ROUTINE Instructions: Urinary Obstruction (DC), Cystoscopy (DC), Ureteral Stent (DC) Additional Instructions: Follow up in [facility] on 09/10/[address] Gold @9:[address] Grossman on Wednesday08/30/17 @ 10:00 [id number] [place] [address] Meds transmitted to Pharmacy Referrals: [facility] [Outside] Chavo Grossman MD [Medical Doctor] -
--- NOTE | 2017-08-29 08:48 | RAD ---
PROCEDURE: Intraoperative Fluoroscopy. HISTORY: FLUOROSCOPY FINDINGS: Fluoroscopic assistance was provided for retrograde cysto ureteronephrography. Please refer to the operative report from urologist. 1.2 minutes of fluoroscopy time was utilized.
== END 2017-08-27 14:14 | disposition home or self-care (01) ==
LOC: H.ER 10:45 → H.ERHOLD 15:07 → H.MEDSURG1 21:20 → INTOOBSV 22:18 → OBSVTOIN 22:18
PROVIDERS: ADMIT Family Medicine Geriatric Medicine; ATTEND Family Medicine Geriatric Medicine
DX: A41.9 Sepsis, unspecified organism (principal); N13.9 Obstructive and reflux uropathy, unspecified; N20.0 Calculus of kidney; I10 Essential (primary) hypertension; Z86.73 Personal history of transient ischemic attack (TIA), and cerebral infarction without residual deficits; Z87.891 Personal history of nicotine dependence; R73.03 Prediabetes
CPT/HCPCS: 36415; 71046; 74018; 74177; 76000; 80048; 80053; 81003; 82550; 82803; 82948; 83690; 84484; 85025; 86850; 86900; 87040; 87086; 93005; 96372; 96374; 96375; 96376; 99283; C1758; C1769; C2617; G0378; J0696; J1650; J1885; J2001; J2250; J2704; J3010; J7030; Q9967